=== PATIENT | female | born 1995 | race American Indian/Alaskan Native ===

== ENCOUNTER 2021-05-27 20:38 | Emergency (ER) | payer SELFPAY ==
[2021-05-27] MEDS ORDERED: HYDROmorphone 1 MG/1 ML INJ IV ONE ×2 (20:44→21:01)
[2021-05-27] MEDS ORDERED: TETANUS,DIPH,PERTUSS(ACELL) VACCINE 0.5 ML SYRINGE IM ONE (20:44)
[2021-05-27] MEDS ORDERED: LACTATED RINGERS 1,000 ML IV ONE (20:45)
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
[2021-05-27 20:55] LABS: Hematocrit 36.5 % (30.3-42.9); Hemoglobin 12.4 gm/dl (10.1-14.3); Mean Corpuscular HGB Conc 34 % (30-34); Mean Corpuscular Volume 85 fl (79-97); Platelet Count 316 K/mm3 (140-440); Red Cell Distribution Width 14.8 % (13.2-15.2)
[2021-05-27 21:09] LABS: Blood Urea Nitrogen 8 mg/dL (7-17); Calcium 9.5 mg/dL (8.4-10.2); Hemolysis Index 4
[2021-05-27] MEDS ORDERED: SODIUM CHLORIDE 0.9% IRR 1,000 ML BOTTLE IR ONE (21:14)
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
[2021-05-27 21:28] LABS: BUN/Creatinine Ratio 11
[2021-05-27 21:37] LABS: INR 1.04 (0.87-1.13)
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
[2021-05-27] MEDS ORDERED: ceFAZolin/NS 1 GM/50 ML 1 GM/50 ML BAG IV ONE (22:41)
[2021-05-27 23:00] VITALS: BP 132/74
[2021-05-27] MEDS ORDERED: hydrOXYzine HCL 10 MG TAB PO ONE (23:43)
[2021-05-28] MEDS ORDERED: ONDANSETRON 4 MG/2 ML INJ IV ONE (00:15)
== END 2021-05-28 01:20 | disposition home or self-care (01) ==
LOC: ED 20:38
DX: S82.102A Unspecified fracture of upper end of left tibia, initial encounter for closed fracture (principal); Z79.899 Other long term (current) drug therapy; X58.XXXA Exposure to other specified factors, initial encounter; Y93.89 Activity, other specified; Y92.89 Other specified places as the place of occurrence of the external cause; Y99.8 Other external cause status
CPT/HCPCS: 36415; 72170; 73552; 73590; 73706; 80048; 82550; 84702; 85027; 85610; 90471; 90715; 96361; 96365; 96375; 96376; 99284; J0690; J1170; J2405; J7120; Q9967